=== PATIENT | female | born 1985 | race Caucasian/White ===

== ENCOUNTER 2017-09-11 09:00 | Emergency (ER) | payer SELFPAY ==
[~2017-09-11] VITALS: Ht 172.7 cm; Wt 74.9 kg
[~2017-09-11 09:00] MED LIST: DIPH25CA65 PO; IBUP-103 PO
[2017-09-11 09:04] VITALS: TEMP 36.7; Ht 172.7 cm; Wt 74.9 kg
[2017-09-11] MEDS ORDERED: PROPARACAINE HCL 0.5% OP SOLN 15 ML BTL ONE (09:38)
[2017-09-11] MEDS ORDERED: TRIMETHOPRIM/POLYMYXIN B OP ONE (10:00)
[2017-09-11 10:06] VITALS: BP 123/84; PULSE 81; O2SAT 100
--- NOTE | 2017-09-11 15:32 | EMERGENCY ROOM VISIT NOTE ---
History Report prepared by Frances: Anshul Gutierrez Under the Supervision of: Dr. Dangelo Ha D.O. First contact with patient: 09:21 Chief Complaint: EYE ASSESSMENT Stated Complaint: SWOLLEN,WATERY EYE, SENSITIVE TO LIGHT History of Present Illness The patient is a 32 year old female who presents to the Emergency Room with complaints of worsening left eye irritation starting yesterday morning. The patient states that in the morning she woke up with her eye being irritated and eventually after some rubbing she got a strand of dog hair out of her eye from below her upper eye lid. She states that her eye was just pink and watery yesterday, and now it feels like there is some sort of cut. The patient states that currently her vision is a little blurry in the left eye, and it is sensitive to light. The patient states that she has never needed contacts or glasses in the past. No loss of vision. No pain behind the eye. Pt denies green discharge from the eye, headache, fevers, chest pain, shortness of breath , nausea, vomiting, and diarrhea. Source of History: patient Onset: yesterday morning Position: eye (left) Quality: other (irritation) Timing: worsening Note: Associated symptoms: Blurry vision and sensitive to light Review of Systems See HPI for pertinent positives & negatives. A total of 10 systems reviewed and were otherwise negative. Past Medical & Surgical Medical Problems: (1) Asthma Family History Diabetes mellitus FH: cancer Hypertension Social History Smoking Status: Current Every Day Smoker Marital Status: single Occupation Status: employed Current/Historical Medications Scheduled PRN Diphenhydramine Hcl (Benadryl Allergy), 1 CAP PO BID PRN for SEASONAL ALLERGIES Ibuprofen Tab (Advil), 200-800 MG PO Q6H PRN for Pain Allergies Coded Allergies: Pecan (Unverified Allergy, Severe, ANAPHYLAXIS, 09/11/17) [place] (Verified Allergy, Severe, ANAPHYLAXIS, 09/11/17) Loratadine (Verified Allergy, Mild, 09/11/17) Citalopram (Verified Allergy, Unknown, 09/11/17) Physical Exam Vital Signs Date Time Temp Pulse Resp B/P (MAP) Pulse Ox O2 Delivery O2 Flow Rate FiO2 09/11/17 10:06 81 20 123/84 100 09/11/17 09:04 36.7 88 18 123/79 98 Room Air Right Eye Acuity: 20/20 Left Eye Acuity: 20/20 Physical Exam GENERAL: Sitting up in bed, alert, well appearing, well nourished, no distress, non-toxic EYE EXAM: Scleral injection with subconjunctival hemorrhage from 9:00 to 12:00. SLIT LAMP: ac deep quiet. Several scleral and one corneal abrasion. No cell or flare. IOP 20L/19R OROPHARYNX: no exudate, no erythema, lips, buccal mucosa, and tongue normal and mucous membranes are moist NECK: supple, no nuchal rigidity, no adenopathy, non-tender LUNGS: Clear to auscultation. Normal chest wall mechanics HEART: no murmurs, S1 normal and S2 normal ABDOMEN: abdomen soft, non-tender, normo-active bowel sounds, no masses, no rebound or guarding. SKIN: no rashes and no bruising UPPER EXTREMITIES: upper extremities are grossly normal. LOWER EXTREMITIES: No pitting edema. NEURO EXAM: Normal sensorium, cranial nerves II-XII grossly intact, normal speech, no gross weakness of arms, no gross weakness of legs. Gross sensation intact. Medical Decision & Procedures Medications Administered Medications (Trade) Dose Ordered Sig/Jemal Route Start Time Stop Time Status Last Admin Dose Admin Polymyxin/ Trimethoprim Sulfate (Polytrim Oph Soln) 2 drops NOW ONCE OP 09/11/17 10:00 09/11/17 10:01 DC 09/11/17 10:02 2 DROPS Procedure Slit Lamp Examination Indication:pain in left eye The left eye was prepped with topical proparacaine. Slit lamp examination was performed in the standard fashion. Subconjunctival hemorrhage on the right sclera with scleral and corneal abrasion in the vertical fashion. Anterior chamber deep/ quiet. Scleral injection present. Clear discharge present. IOP 19 and 20 right/left No foreign bodies noted. Negative Kacie sign. The patient tolerated the procedure well without complication. ED Course ED COURSE: Vital signs were reviewed and showed normal vitals The patients medical record was reviewed The above diagnostic studies were performed and reviewed. ED treatments and interventions as stated above. 0936: The patient was evaluated in room B3. A complete history and physical examination was performed. I discussed my findings with the patient and she understands and agrees with the treatment plan. Based on the patients age, coexisting illnesses, exam and lab findings the decision to treat as an outpatient was made. The patient remained stable while under my care. The patient appeared well at the time of discharge. 0938: Alcaine 0.5% Oph Soln OP 1000: Polytrim Oph Soln 2 drops OP Medical Decision Differential diagnosis: Etiologies such as~a trauma, corneal abrasion, corneal ulcer, foreign body, globe penetration, hyphema, hypopyon, and orbital cellulitis, periorbital cellulitis, as well as others were entertained. Patient is a 32-year-old female who presents to ER for pain in her left eye. She notes that this occurred when she woke the morning yesterday. She was able to remove a dull care. She had some relief following this. Visual acuity is intact. IOP is appropriate. Patient is neurologically intact. Slit lamp shows corneal abrasion and abrasions of the sclera as well. She had complete relief following fluorescein. I do believe this is all superficial. No cell or flare. She is given antibiotic drops and discharged follow-up with ophthalmology if pain continues over the next 2 days. Discussed with Pt concerning signs and symptoms to watch out for. Pt was instructed to follow up with their PCP and discussed with the patient their option to return to the ED at anytime for persistent or worsening symptoms. The appropriate anticipatory guidance and out-patient management, including indications for return to the emergency department, were explained at length to the patient and understood. Medication Reconcilliation Current Medication List: was personally reviewed by me Blood Pressure Screening Patient's blood pressure: Normal blood pressure Impression Primary Impression: Corneal abrasion Additional Impression: Subconjunctival hemorrhage Scribe Attestation The scribe's documentation has been prepared under my direction and personally reviewed by me in its entirety. I confirm that the note above accurately reflects all work, treatment, procedures, and medical decision making performed by me. Departure Information Dispostion Home / Self-Care Referrals No Doctor, Assigned (PCP) Forms HOME CARE DOCUMENTATION FORM, IMPORTANT VISIT INFORMATION, WORK / SCHOOL INSTRUCTIONS Patient Instructions Corneal Injury, ED Eye Injury Corneal Abrasion, My [facility] Additional Instructions Please follow up with your primary care doctor with in the next 24 hours. Any worsening of your symptoms, please return to the ED immediately. This includes any fevers greater than 100.4, purulent discharge from her eye, loss of vision, headache, change in vision or any other concerning signs or symptoms from your standpoint. Please use antibiotic drops 3 times a day for the next 3 days or until your symptoms resolved. You should also use saline eyedrops every hour as needed. Please try to refrain from itching her eye. Problem Qualifiers Primary Impression: Corneal abrasion Encounter type: sequela Laterality: unspecified laterality Qualified Codes : S05.00XS - Injury of conjunctiva and corneal abrasion without foreign body, unspecified eye, sequela Additional Impression: Subconjunctival hemorrhage Laterality: unspecified laterality Qualified Codes: H11.30 - Conjunctival hemorrhage, unspecified eye
== END 2017-09-11 10:07 | disposition home or self-care (01) ==
LOC: C.EDB 09:01 → C.EDA 10:07
DX: S05.02XA Injury of conjunctiva and corneal abrasion without foreign body, left eye, initial encounter (principal); H11.32 Conjunctival hemorrhage, left eye; X58.XXXA Exposure to other specified factors, initial encounter; J45.909 Unspecified asthma, uncomplicated; Z83.3 Family history of diabetes mellitus; Z82.49 Family history of ischemic heart disease and other diseases of the circulatory system; F17.200 Nicotine dependence, unspecified, uncomplicated

== ENCOUNTER 2017-09-16 09:45 | Emergency (ER) | payer SELFPAY ==
[~2017-09-16] VITALS: Ht 172.7 cm; Wt 74.8 kg
[2017-09-16 09:53] VITALS: TEMP 36.9; Ht 172.7 cm; Wt 74.8 kg
[2017-09-16] MEDS ORDERED: ACETAMINOPHEN 500 MG TAB PO ONE (10:39)
[2017-09-16 10:40] LABS: URINE APPEARANCE CLOUDY (CLEAR); URINE COLOR DK YELLOW; URINE EPITHELIAL CELL AUTO >30 /lpf (0-5); URINE NITRITE NEG (NEG); URINE PH 5.5 (4.5-7.5); URINE SPECIFIC GRAVITY 1.024 (1.000-1.030); UROBILINOGEN NEG (NEG); ZZUR CULT IF INDIC CLEAN CATCH YES
[2017-09-16 10:42] LABS: MANUAL MICROSCOPIC REQUIRED? NO; REVIEW REQ? YES
[2017-09-16 10:44] LABS: URINE BILIRUBIN NEG (NEG)
[2017-09-16 11:02] LABS: HEMATOCRIT 34.9 % (37-47); MEAN CELL VOLUME 83.3 fL (80-100); MEAN CORPUSCULAR HEMOGLOBIN 30.1 pg (25-34); MEAN CORPUSCULAR HGB CONC 36.1 g/dl (32-36); MEAN PLATELET VOLUME 10.4 fL (7.4-10.4); PLATELET COUNT 190 K/uL (130-400); RED BLOOD COUNT 4.19 M/uL (4.2-5.4); WHITE BLOOD COUNT 8.22 K/uL (4.8-10.8)
[2017-09-16 11:08] LABS: URINE PATH CASTS 0-3 GRANULAR CASTS /lpf (0)
[2017-09-16 11:15] LABS: CALCIUM 8.7 mg/dl (8.5-10.1); CREATININE 0.68 mg/dl (0.60-1.20); POTASSIUM 3.5 mmol/L (3.5-5.1)
[2017-09-16 11:18] LABS: ALB/GLOB RATIO 0.9 (0.9-2)
[2017-09-16 11:26] LABS: BASO % 0.2 %; BASO ABS # 0.02 K/uL (0-0.2); COMPLETE YES; EOS % 0.2 %; HYPERSEGMENTED POLYS 1+; IG% 0.1 %; LYMPH % 11.4 %; LYMPH ABS # 0.94 K/uL (1.2-3.4); MONO % 8.2 %; NEUT % 79.9 %; TOXIC GRANULATION 1+
[2017-09-16] MEDS ORDERED: AMOXICILLIN 250 MG CAP PO STA (12:08)
[2017-09-16] MEDS ORDERED: PRED50TA PO (12:12)
[2017-09-16] MEDS ORDERED: AMOX500T3 PO (12:12)
--- NOTE | 2017-09-16 12:13 | EMERGENCY ROOM VISIT NOTE ---
ED Visit Note First contact with patient: 10:58 CHIEF COMPLAINT: Sore throat and fever 3 days HISTORY OF PRESENT ILLNESS: Patient is an otherwise healthy 32-year-old white female who presents to the emergency department for evaluation of fever, body and muscle aches, sinus and nasal congestion, sore throat and swollen neck glands. Her symptoms started about 3-4 days ago. Temperature max was 102F orally 2 days ago. She's been taking ibuprofen, and an [id number] sinus medication for her symptoms. She denies any cough or sputum production. She reports her kids have been sick recently, and a coworker was diagnosed with strep last week. No rash. Denies any posterior neck pain or stiffness. No difficulty breathing. Symptoms came on gradually. There has been no chest pain , no abdominal pain, no nausea or vomiting. REVIEW OF SYSTEMS: Review of systems as per HPI. All other systems reviewed were negative. At least 6 systems reviewed. PMH: Electronic medical records are reviewed and summarized as above/below. See Problem List. SOCIAL HISTORY: Patient lives at home with her family. Former smoker.. PHYSICAL EXAM: Vital Signs: Reviewed Nurse's notes. MENTAL STATUS: Patient is nontoxic appearing 32-year-old female who is awake and alert and in no acute distress. Vital signs are stable. She is afebrile. HEAD: Atraumatic, without temporal or scalp tenderness. EYES: PERRL, EOMI, no discharge or injection. Old left subconjunctival hemorrhage noted. EARS: Tympanic membranes intact, not inflamed, have normal contour. External canals clear. NOSE: Nares patent, turbinates edematous and boggy with clear rhinorrhea. MOUTH: Mucous membranes moist, no lesions, tongue and gums appear normal. THROAT: Tonsils are slightly erythematous, with exudate noted bilaterally. No trismus. Uvula is midline. Airway is patent. NECK: Supple, nontender, bilateral cervical chain lymphadenopathy noted. HEART: Regular rate and rhythm without murmurs, ectopy, gallops, or rubs. LUNGS: Clear to auscultation and breath sounds equal, no wheezes, rales, or rhonchi. SKIN: Normal. NEUROLOGICAL: Sensory and motor functions grossly intact. Normal gait. ED course: The patient was seen and assessed as above. Critical pathways had been implemented prior to my evaluation of the patient. IV lock was initiated. She had been hydrated with a liter of normal saline solution. She was given Tylenol 1 g orally. Rapid strep was obtained and was negative. Backup cultures were pending. Influenza swab was performed and was negative. ABC with differential, CMP and urinalysis were also ordered. Patient's laboratory studies noted a normal white count of 8200. Electrolytes are unremarkable. Renal function is normal. Transaminases are within normal limits. Influenza swab was negative. Patient's laboratory studies were reviewed with her. She has had a fever over the last several days, is afebrile here. She has no physical exam findings to indicate meningitis or encephalitis. She has evidence for tonsillitis on exam with cervical chain lymphadenopathy. She does not have any evidence for retropharyngeal or peritonsillar abscess. She was given amoxicillin 500 mg orally and prednisone 60 mg orally. She'll be placed on a course of amoxicillin and given prednisone. Continued supportive care measures were discussed using neit-doa-gjhixkg medications. She was educated on the worrisome signs or symptoms for which return to the emergency department, and was encouraged to recheck with her primary care provider this week. Differential diagnoses also entertained included strep versus viral pharyngitis , mononucleosis, viral illness including influenza, among others. Medication reconciliation: I attest that I have personally reviewed the patient' s current medication list. Blood pressure screening : Patient was found to have normal blood pressure on screening and does not require follow-up. Problem List Medical Problems: (1) Asthma Status: Chronic (2) Corneal abrasion Status: Resolved (3) Corneal abrasion Status: Resolved (4) Dental caries Status: Resolved (5) Finger contusion Status: Resolved (6) Irregular menstrual bleeding Status: Resolved (7) Pain, dental Status: Resolved (8) Pelvic cramping Status: Resolved (9) Subconjunctival hemorrhage Status: Resolved Current/Historical Medications Scheduled Amoxicillin (Amoxil), 1 TAB PO TID Prednisone (Prednisone), 50 MG PO DAILY Scheduled PRN Ibuprofen Tab (Advil), 200-800 MG PO Q6H PRN for Pain Allergies Coded Allergies: Pecan (Unverified Allergy, Severe, ANAPHYLAXIS, 09/11/17) [place] (Verified Allergy, Severe, ANAPHYLAXIS, 09/11/17) Citalopram (Verified Allergy, Unknown, 09/11/17) Vital Signs Date Time Temp Pulse Resp B/P (MAP) Pulse Ox O2 Delivery O2 Flow Rate FiO2 09/16/17 13:04 92 18 107/73 98 09/16/17 11:58 96 18 98 Room Air 09/16/17 09:53 36.9 98 16 99/68 98 Room Air Laboratory Results 09/16/17 10:35 Red Blood Count 4.19, Mean Corpuscular Volume 83.3, Mean Corpuscular Hemoglobin 30.1, Mean Corpuscular Hemoglobin Concent 36.1, Mean Platelet Volume 10.4, Neutrophils (%) (Auto) 79.9, Lymphocytes (%) (Auto) 11.4, Monocytes (%) (Auto) 8.2, Eosinophils (%) (Auto) 0.2, Basophils (%) (Auto) 0.2, Neutrophils # (Auto) 6.56, Lymphocytes # (Auto) 0.94, Monocytes # (Auto) 0.67, Eosinophils # (Auto) 0.02, Basophils # (Auto) 0.02 09/16/17 10:35 Test 09/16/17 10:20 09/16/17 10:35 Urine Color DK YELLOW Urine Appearance CLOUDY (CLEAR) Urine pH 5.5 (4.5-7.5) Urine Specific [place] 1.024 (1.000-1.030) Urine Protein TRACE (NEG) Urine Glucose (UA) NEG (NEG) Urine Ketones 3+ (NEG) Urine Occult Blood 2+ (NEG) Urine Nitrite NEG (NEG) Urine Bilirubin NEG (NEG) Urine Urobilinogen NEG (NEG) Urine Leukocyte Esterase SMALL (NEG) Urine WBC (Auto) 5-10 /hpf (0-5) Urine RBC (Auto) 5-10 /hpf (0-4) Urine Hyaline Casts (Auto) 1-5 /lpf (0-5) Urine Epithelial Cells (Auto) >30 /lpf (0-5) Urine Bacteria (Auto) 2+ (NEG) Urine Pathogenic Casts 0-3 GRANULAR CASTS /lpf (0) Urine Test NEG (NEG) White Blood Count 8.22 K/uL (4.8-10.8) Red Blood Count 4.19 M/uL (4.2-5.4) Hemoglobin 12.6 g/dL (12.0-16.0) Hematocrit 34.9 % (37-47) Mean Corpuscular Volume 83.3 fL (80-100) Mean Corpuscular Hemoglobin 30.1 pg (25-34) Mean Corpuscular Hemoglobin Concent 36.1 g/dl (32-36) Platelet Count 190 K/uL (130-400) Mean Platelet Volume 10.4 fL (7.4-10.4) Neutrophils (%) (Auto) 79.9 % Lymphocytes (%) (Auto) 11.4 % Monocytes (%) (Auto) 8.2 % Eosinophils (%) (Auto) 0.2 % Basophils (%) (Auto) 0.2 % Neutrophils # (Auto) 6.56 K/uL (1.4-6.5) Lymphocytes # (Auto) 0.94 K/uL (1.2-3.4) Monocytes # (Auto) 0.67 K/uL (0.11-0.59) Eosinophils # (Auto) 0.02 K/uL (0-0.5) Basophils # (Auto) 0.02 K/uL (0-0.2) RDW Standard Deviation 38.0 fL (36.4-46.3) RDW Coefficient of Variation 12.4 % (11.5-14.5) Immature Granulocyte % (Auto) 0.1 % Immature Granulocyte # (Auto) 0.01 K/uL (0.00-0.02) Hypersegmented Polys 1+ Toxic Granulation 1+ Anion Gap 12.0 mmol/L (3-11) Est Creatinine Clear Calc Drug Dose 120.9 ml/min Estimated GFR () 135.1 Estimated GFR (Non- 116.6 BUN/Creatinine Ratio 11.0 (10-20) Calcium Level 8.7 mg/dl (8.5-10.1) Total Bilirubin 0.6 mg/dl (0.2-1) Aspartate Amino Transf (AST/SGOT) 12 U/L (15-37) Alanine Aminotransferase (ALT/SGPT) 23 U/L (12-78) Alkaline Phosphatase 76 U/L (45-117) Total Protein 7.4 gm/dl (6.4-8.2) Albumin 3.4 gm/dl (3.4-5.0) Globulin 4.0 gm/dl (2.5-4.0) Albumin/Globulin Ratio 0.9 (0.9-2) Influenza Type A Antigen Neg for Influ A (NEG) Influenza Type B Antigen Neg for Influ B (NEG) Medications Administered Medications (Trade) Dose Ordered Sig/Jemal Route Start Time Stop Time Status Last Admin Dose Admin Acetaminophen (Tylenol Tab) 1,000 mg STK-MED ONCE PO 09/16/17 10:39 09/16/17 10:40 DC 09/16/17 10:45 1,000 MG Amoxicillin (Amoxil Cap) 500 mg NOW STAT PO 09/16/17 12:08 09/16/17 12:09 DC 09/16/17 12:48 500 MG Prednisone (PredniSONE TAB) 60 mg NOW STAT PO 09/16/17 12:08 09/16/17 12:09 DC 09/16/17 12:48 60 MG Departure Information Impression Primary Impression: Exudative tonsillitis Prescriptions Prednisone (Prednisone) 50 Mg Tab 50 MG PO DAILY for 4 Days, #4 TAB Prov: Kym Baird PA 09/16/17 Amoxicillin (AMOXIL) 500 Mg Tab 1 TAB PO TID for 10 Days, #30 TAB Prov: Kym Baird PA 09/16/17 Referrals No Doctor, Assigned (PCP) Patient Instructions My [facility] Additional Instructions Amoxicillin 500mg: Take one pill 3 times daily for 10 days for your throat infection. All antibiotics can cause diarrhea. If this occurs and you feel worse or it does not resolve in 1-2 days follow up with your doctor or return to the Emergency Department as this could be signs of serious underlying problems. Any medication can cause an allergic reaction, stop the pills immediately and return to the ER for rash, hives, breathing difficulties, or swelling. Prednisone 50mg: Once daily until the prescription is finished. It is best to take this earlier in the day as some patients note occasional difficulty falling asleep when taken in the late evening. Acetaminophen(Tylenol) may be used for fever or pain. Use 1000mg every six hours as needed. Avoid using more than 3000mg in a 24 hour period. (AND/OR) Ibuprofen(Motrin, Advil) may be used for fever or pain. Use 600mg every six hours as needed. Take with food. Avoid using more than 2400mg in a 24 hour period. Do not use 2400mg per day for more than three consecutive days without physician direction. Prolonged inappropriate use can lead to stomach upset or ulcers. Pseudoephedrine(Sudaphed): 30-60mg every 6 hours as needed for nasal congestion. Do not take this with other stimulant products or supplements. Guaifenesin (Mucinex) : Take 1200 mg every 12 hours as needed for nasal/chest congestion, to help thin secretions. Albuterol Inhaler: Take 2 puffs four times daily for seven days, then as needed. Rest and drink plenty of fluids. Controlling your fever with Tylenol and Ibuprofen as above will make you feel better. Wash your hands after nose blowing, sneezing, or coughing. Most germs are spread through contact, therefore improper hygiene may result in your close contacts and loved ones becoming ill just like you. Continue current medications. Return to the ER for severe headache, neck stiffness, chest pain, difficulty breathing, fevers, vomiting, worsening of your condition, or as needed. Follow up with your primary physician this week for a recheck of your current condition.
[2017-09-16 13:04] VITALS: BP 107/73; PULSE 92; O2SAT 98
== END 2017-09-16 13:13 | disposition home or self-care (01) ==
LOC: C.EDB 09:46 → C.EDC 13:13
DX: J03.90 Acute tonsillitis, unspecified (principal); Z87.891 Personal history of nicotine dependence

== ENCOUNTER 2022-09-17 11:31 | Inpatient (IN) ==
[2022-09-17 12:22] LABS: Basophils # (auto) 0.05 K/uL (0-0.2); Basophils % (auto) 0.5 %; Eosinophils # (auto) 0.11 K/uL (0-0.50); Eosinophils % (auto) 1.1 %; Hematocrit (blood only) 36.3 % (34.1-44.9); Immature Granulocytes # (auto) 0.03 K/uL (0.00-0.02); Immature Granulocytes % (auto) 0.3 %; Lymphocytes % (auto) 21.6 %; Mean Corpuscular Hemoglobin 29.8 pg (25.0-34.0); Mean Corpuscular Hgb Conc 35.8 g/dL (32.0-36.0); Mean Corpuscular Volume 83.3 fL (80.0-100.0); Monocytes # (auto) 0.64 K/uL (0.24-0.82); Monocytes % (auto) 6.3 %; Neutrophils # (auto) 7.16 K/uL (1.4-6.5); Neutrophils % (auto) 70.2 %; Platelet Count 299 K/uL (130-400); RDW Standard Deviation 36.7 fL (36.4-46.3); Red Blood Count 4.36 M/uL (3.93-5.22); White Blood Count 10.19 K/ul (4.8-10.8)
[2022-09-17 12:32] LABS: Carbon Dioxide 28 mmol/L (21-32); Chloride 107 mmol/L (98-107); Potassium 3.6 mmol/L (3.5-5.1); Sodium 140 mmol/L (136-145)
[2022-09-17 12:33] LABS: Alanine Aminotransferase 6 U/L (7-52); Albumin Globulin Ratio 1.4 (0.9-2); Alkaline Phosphatase 48 U/L (34-104); Anion Gap 5 (3-11); Aspartate Aminotransferase 9 U/L (13-39); BUN Creatinine Ratio 7.4 (10-20); Bilirubin,Total 0.5 mg/dl (0.2-1.0); Blood Urea Nitrogen 5 mg/dl (6-23); Calcium 8.6 mg/dl (8.5-10.1); Est GFR (African American) 130.4 ml/min; Est GFR (Non-African American) 112.5 ml/min; Globulin 2.8 gm/dl (2.5-4.0); Glucose 82 mg/dl (70-99(Fasting)); Total Protein 6.8 gm/dl (6.0-8.3)
[2022-09-17] MEDS ORDERED: PIPERACILLIN/TAZOBACTAM 4.5 GM in DEXTROSE 5% 100 ML IV ONE (15:13)
[2022-09-17] MEDS ORDERED: SODIUM CHLORIDE 0.9% 1000ML 1,000 ML IV ONE (15:13)
[2022-09-17] MEDS ORDERED: ACETAMINOPHEN 1,000 MG/100 ML VIAL IV STA (15:13)
[2022-09-17] MEDS ORDERED: dexAMETHasone**PF** 10 MG/ML VIAL IV ONE (15:13)
[2022-09-17] MEDS ORDERED: MoRPHine SULFATE 4 MG/ML 1 ML CARP\\VIAL IV STA (15:13)
[2022-09-17] MEDS ORDERED: OPTIRAY 350 100ml IV ONE (15:50)
--- NOTE | 2022-09-17 16:04 | CT Scan Report ---
CT soft tissue neck w con HISTORY: 37 years-old Female Right mandibular swelling/dental inf/?abscess acute right-sided facial pain and swelling. Possible dental abscess. COMPARISON: None TECHNIQUE: Multiple axial CT images of the soft tissues of the neck were obtained following the intra venous administration of 83 cc Optiray 350. A dose lowering technique was used consistent with the pr incipals of FLOR. FINDINGS: The imaged intracranial structures demonstrate no acute abnormality. The opacified vascular structure s of the neck are within normal limits. The globes and orbits are unremarkable. Patent airway. Bilate ral subcentimeter palatine tonsillar calcifications. The glottis and subglottic airway are unremarkab le. The thyroid is within normal limits. Residual thymic tissue anterior mediastinum. Parotid and sub mandibular glands are unremarkable. No pneumothorax. Mild subpleural bleb formation of the right lung apex. Right 72 lymph nodes measuring up to 8 mm are noted along with bilateral cervical chain lymph nodes m easuring up to 1.1 cm on the right, likely reactive. There is moderate subcutaneous and deep tissue e ifeoma within the right mandibular tissues tracking into the subareolar distribution and layering along the right platysma and sternocleidomastoid. No discrete abscess identified. There is no acute calvarial fracture. The mastoid air cells and middle ear cavities are clear. The pa ranasal sinuses are also generally clear. 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 A large periapical cyst is noted involving the right first ana bular molar with associated mild lateral cortical dehiscence. IMPRESSION: 1. Numerous dental caries with periapical cysts. 2. There is moderate subcutaneous and deep tissue edema involving the right mandibular and submandibu lar tissues suggestive of cellulitis without fluid collection to suggest abscess. 3. Mild cervical chain and submandibular lymphadenopathy, likely reactive. ACT 112: Negative or not required by law. The above report was generated using voice recognition software. It may contain grammatical, syntax o r spelling errors. Electronically signed by: Aleksandr Saavedra M.D. 09/17/2022 4:03 PM
--- NOTE | 2022-09-17 16:21 | Emergency Department Note ---
Impression & Plan Cellulitis of jaw, right, Tobacco abuse, Dental caries ED Provider Note NAME: CHRISTOPHER GAINES AGE: 37 SEX: F ARRIVES VIA: Walk-In INFORMANT: Patient ED PROVIDER(S): Fabian Tinajero MD CHIEF COMPLAINT: Dental infection, jaw pain and swelling PLAN: Disposition: Admit MEDICAL DECISION MAKING: The patient is a pleasant 37-year-old woman with a past medical history of dental caries and tobacco abuse who presents to the emergency department accompa nied by her mother for evaluation of worsening right lower dental pain with right jaw pain and swelling that has developed since Saturday. He reports increasing pain and redness. She reports she does not have a dentist. She denies fevers, cough, congestion, GI or symptoms. She denies shortness of breath or trouble swallowing but it is painful to open her mouth. On arrival the patient is uncomfortable but no acute distress, afebrile stable vital signs. She has edema and erythema of the right mandibular and submandibular region with tenderness and warmth. There is mild erythema extendi ng down the right anterior lateral aspect of the neck. She has tender cervical and submandibular lymphadenopathy. There is no pain with tracheal manipulation. The patient has mild trismus but is able to open her mouth albeit causing pain. She is handling her secretions without difficulty. WBC, H/H and platelets within normal limits. Chemistry without metabolic acidosis per electrolytes LFTs unremarkable. COVID-19 RNA, WINDY test was negative. CT soft tissue neck was performed and demonstrates evidence of mandibular/submandibular cellulitis with moderate subcutaneous and deep tissue edema involving the right mandible and submandibular tissues. There is no fluid collection to suggest abscess. Note is made of mild cervical chain and submandibular lymphadenopathy that is likely reactive. Case was discussed with oral surgery, Dr. Cornejo who agrees with the patient being admitted for IV antibiotics to the hospitalist service. He will be available for inpatient team consultation and can see the patient tomorrow. The patient has been treated with IV Zosyn on arrival due to severity of symptoms. She was additionally given dexamethasone, APAP, morphine and IV fluid hydration and upon reevaluation patient did report improvement in her pain and her mild trismus had improved/resolved as she was able to open her mouth more freely without difficulty. Case was discussed with Maura Flores PAC, with Mark Valerio hospitalist who will evaluate the patient for admission. Triage Nursing notes reviewed and agree them. Prior medical records reviewed Vital Signs: reviewed Differential diagnosis: Viral syndrome, tonsillitis, streptococcal pharyngitis, mononucleosis, peritonsillar abscess, retropharyngeal abscess, otitis, pneumonia, influenza, as well as other pathologies. ER treatment provided: See below. Diagnostics interpreted by me: Cardiac Monitoring: An order for continuous cardiac monitoring was placed and demonstrated normal sinus rhythm, 83 bpm, no ectopy. Laboratory studies: See below Imaging studies: See below Consultation(s): Dr. Cornejo, Oral surgery [facility], [facility] HPI: The patient is a pleasant 37-year-old woman with a past medical history of dental caries and tobacco abuse who presents to the emergency department accompanied by her mother for evaluation of worsening right lower dental pain with right jaw pain and swelling that has developed since Saturday. He reports increasing pain and redness. She reports she does not have a dentist. She denies fevers, cough, congestion, GI or symptoms. She denies shortness of breath or trouble swallowing but it is painful to open her mouth. ROS: See above HPI for pertinent positives & negatives. A total of 10 systems reviewed and were otherwise negative. VITALS:See Below PHYSICAL EXAMINATION: GENERAL: Awake, alert, uncomfortable-appearing, in no distress HENT: Normocephalic, atraumatic. Edema and erythema of the right mandibular and submandibular region with tenderness and warmth. No crepitus. The patient has mild trismus but is able to open her mouth albeit causing pain. She is handling her secretions without difficulty. EYES: Normal conjunctiva. Sclera non-icteric. NECK: Supple. No nuchal rigidity. FROM. No JVD. Mild erythema extending down the right anterior lateral aspect of the neck. Tender cervical and submandibular lymphadenopathy. There is no pain with tracheal manipulation. RESPIRATORY: Clear to auscultation. CARDIAC: Regular rate, normal rhythm. Extremities warm and well perfused. Pulses equal. ABDOMEN: Soft, non-distended. No tenderness to palpation. No rebound or guardi ng. No masses. RECTAL: Deferred. MUSCULOSKELETAL: Chest examination reveals no tenderness. The back is symmetrical on inspection without obvious abnormality. There is no CVA tenderness to palpation. No joint edema. LOWER EXTREMITIES: Calves are equal size bilaterally and non-tender. No edema. No discoloration. NEURO: Normal sensorium. No sensory or motor deficits noted. SKIN: No rash or jaundice noted. ED COURSE: Critical Care: I have personally spent greater than 35 minutes of critical care time in the direct management of this patient. This includes bedside care, interpretation of diagnostic studies, and testing, discussion with consultants, patient, and family members, and other required patient management activities. This 35 minutes is in excess of all separately billable procedures. Fabian Tinajero MD Past Med/Surg History Medical History Allergic rhinitis Hx of Alice-Cruz syndrome Surgical History History of tooth extraction Family History Mother Hypertension Father Hypertension Grandmother (Paternal) Heart disease Diabetes Social History Smoking Status: Current every day smoker Hx Alcohol Use: Yes (rarely) Preferred Language: Chinese Current Living Situation: Family current occupational status: employed current occupation: [employer] Feels Safe at Home: Yes Dental Care, Regularly: No Allergies Allergies Allergy/AdvReac Type Severity Reaction Status Date / Time pecan nut Allergy Severe ANAPHYLAXIS Unverified 09/17/22 16:40 walnut Allergy Severe ANAPHYLAXIS Verified 09/17/22 16:40 citalopram Allergy Unknown Unknown Verified 09/17/22 16:40 Home Meds Home Medications Medication Instructions Recorded Confirmed diphenhydramine HCl 25 mg tablet 25 mg PO QAM 09/17/22 09/17/22 (Benadryl Allergy) ibuprofen 200 mg tablet 800 mg PO Q6H PRN Pain 09/17/22 09/17/22 Results & Data (ED) Vital Signs Vital Signs - 24 hr 09/17/22 11:33 09/17/22 14:09 09/17/22 14:30 Temperature 36.4 C L Temperature Source Temporal Artery Scan Pulse Rate 84 76 Pulse Rate [Finger] 74 Respiratory Rate 18 19 19 Respiratory Effort / Characteristics Non-Labored Spontaneous Non-Labored Spontaneous Respiratory Depth Normal Normal Respiratory Pattern Regular Blood Pressure 120/81 136/82 Blood Pressure [Left Arm] 123/89 Blood Pressure Mean 94 100 Blood Pressure Mean [Left Arm] 100 Blood Pressure Position [Left Arm] Sitting Pulse Oximetry 98 100 100 Oxygen Delivery Method Room Air Room Air Room Air Sepsis Recent Fever Within 48 Hours No Sepsis New/Unexplained Change in Mental Status No Sepsis Action Taken by Nursing No Action Required 09/17/22 15:00 09/17/22 15:30 09/17/22 16:00 Temperature Temperature Source Pulse Rate 71 78 85 Pulse Rate [Finger] Respiratory Rate 18 17 17 Respiratory Effort / Characteristics Respiratory Depth Respiratory Pattern Blood Pressure 117/91 122/85 119/85 Blood Pressure [Left Arm] Blood Pressure Mean 99 97 96 Blood Pressure Mean [Left Arm] Blood Pressure Position [Left Arm] Pulse Oximetry 99 100 100 Oxygen Delivery Method Room Air Room Air Room Air Sepsis Recent Fever Within 48 Hours Sepsis New/Unexplained Change in Mental Status Sepsis Action Taken by Nursing 09/17/22 16:30 09/17/22 17:02 Temperature Temperature Source Pulse Rate 88 83 Pulse Rate [Finger] Respiratory Rate 16 16 Respiratory Effort / Characteristics Respiratory Depth Respiratory Pattern Blood Pressure 127/92 115/74 Blood Pressure [Left Arm] Blood Pressure Mean 103 87 Blood Pressure Mean [Left Arm] Blood Pressure Position [Left Arm] Pulse Oximetry 100 100 Oxygen Delivery Method Room Air Room Air Sepsis Recent Fever Within 48 Hours Sepsis New/Unexplained Change in Mental Status Sepsis Action Taken by Nursing Laboratory Data Attestation: I reviewed the patient's lab results. Result diagrams: 09/17/22 11:50 09/17/22 11:50 Lab Results 09/17/22 09/17/22 09/17/22 Range/Units 11:50 11:50 11:50 WBC 10.19 (4.8-10.8) K/ul RBC 4.36 (3.93-5.22) M/uL Hgb 13.0 (12.0-16.0) g/dl Hct 36.3 (34.1-44.9) % MCV 83.3 (80.0-100.0) fL MCH 29.8 (25.0-34.0) pg MCHC 35.8 (32.0-36.0) g/dL RDW Std Deviation 36.7 (36.4-46.3) fL RDW Coeff of Christofer 12.0 (11.5-14.5) % Plt Count 299 (130-400) K/uL MPV 10.0 (9.4-12.3) fL Immature Gran % (Auto) 0.3 % Neut % (Auto) 70.2 % Lymph % (Auto) 21.6 % [place] % (Auto) 6.3 % Eos % (Auto) 1.1 % Baso % (Auto) 0.5 % Neut # (Auto) 7.16 H (1.4-6.5) K/uL Lymph # (Auto) 2.20 (1.2-3.4) K/uL [place] # (Auto) 0.64 (0.24-0.82) K/uL Eos # (Auto) 0.11 (0-0.50) K/uL Baso # (Auto) 0.05 (0-0.2) K/uL Immature Gran # (Auto) 0.03 H (0.00-0.02) K/uL Sodium 140 (136-145) mmol/L Potassium 3.6 (3.5-5.1) mmol/L Chloride 107 (98-107) mmol/L Carbon Dioxide 28 (21-32) mmol/L Anion Gap 5 (3-11) BUN 5 L (6-23) mg/dl Creatinine 0.68 (0.6-1.2) mg/dl Est Cr Clr Drug Dosing Not Reportable Est GFR ( Amer) 130.4 ml/min Est GFR (Non-Af Amer) 112.5 ml/min BUN/Creatinine Ratio 7.4 L (10-20) Glucose 82 (70-99(Fasting)) mg/dl Lactate (0.4-2.0) mmol/L Calcium 8.6 (8.5-10.1) mg/dl Total Bilirubin 0.5 (0.2-1.0) mg/dl AST 9 L (13-39) U/L ALT 6 L (7-52) U/L Alkaline Phosphatase 48 (34-104) U/L Total Protein 6.8 (6.0-8.3) gm/dl Albumin 4.0 (3.4-5.0) gm/dl Globulin 2.8 (2.5-4.0) gm/dl Albumin/Globulin Ratio 1.4 (0.9-2) Procalcitonin 0.17 (0-0.5) ng/ml SARS-CoV-2, RNA, NAAT (NEGATIVE) 09/17/22 09/17/22 Range/Units 15:50 16:00 WBC (4.8-10.8) K/ul RBC (3.93-5.22) M/uL Hgb (12.0-16.0) g/dl Hct (34.1-44.9) % MCV (80.0-100.0) fL MCH (25.0-34.0) pg MCHC (32.0-36.0) g/dL RDW Std Deviation (36.4-46.3) fL RDW Coeff of Christofer (11.5-14.5) % Plt Count (130-400) K/uL MPV (9.4-12.3) fL Immature Gran % (Auto) % Neut % (Auto) % Lymph % (Auto) % [place] % (Auto) % Eos % (Auto) % Baso % (Auto) % Neut # (Auto) (1.4-6.5) K/uL Lymph # (Auto) (1.2-3.4) K/uL [place] # (Auto) (0.24-0.82) K/uL Eos # (Auto) (0-0.50) K/uL Baso # (Auto) (0-0.2) K/uL Immature Gran # (Auto) (0.00-0.02) K/uL Sodium (136-145) mmol/L Potassium (3.5-5.1) mmol/L Chloride (98-107) mmol/L Carbon Dioxide (21-32) mmol/L Anion Gap (3-11) BUN (6-23) mg/dl Creatinine (0.6-1.2) mg/dl Est Cr Clr Drug Dosing Est GFR ( Amer) ml/min Est GFR (Non-Af Amer) ml/min BUN/Creatinine Ratio (10-20) Glucose (70-99(Fasting)) mg/dl Lactate 0.7 (0.4-2.0) mmol/L Calcium (8.5-10.1) mg/dl Total Bilirubin (0.2-1.0) mg/dl AST (13-39) U/L ALT (7-52) U/L Alkaline Phosphatase (34-104) U/L Total Protein (6.0-8.3) gm/dl Albumin (3.4-5.0) gm/dl Globulin (2.5-4.0) gm/dl Albumin/Globulin Ratio (0.9-2) Procalcitonin (0-0.5) ng/ml SARS-CoV-2, RNA, NAAT NEGATIVE (NEGATIVE) Administered Medications Discontinued Medications Dexamethasone Sodium Phosphate (DexamethasonePf 10 Mg/Ml Vial) 10 mg IV NOW ONE Stop: 09/17/22 15:14 Last Admin: 09/17/22 15:58 Dose: 10 mg Documented By: ADRIANNE Sodium Chloride (Nss 1000ml) 1,000 mls @ 999 mls/hr IV .Q1H1M ONE Stop: 09/17/22 16:13 Last Infusion: 09/17/22 16:59 Dose: 0 mls/hr Documented By: Admin: 09/17/22 15:57 Dose: 999 mls/hr Documented By: ADRIANNE Acetaminophen (Ofirmev) 1,000 mg in 100 mls @ 400 mls/hr IV NOW STA Stop: 09/17/22 15:27 Last Infusion: 09/17/22 16:19 Dose: 0 mls/hr Documented By: Admin: 09/17/22 16:03 Dose: 400 mls/hr Documented By: ADRIANNE Piperacillin Sod/Tazobactam (Sod 4.5 gm/ Dextrose) 120 mls @ 200 mls/hr IV NOW ONE; Protocol Stop: 09/17/22 15:48 Last Admin: 09/17/22 17:02 Dose: 200 mls/hr Documented By: ADRIANNE Ioversol (Optiray 350 100ml) 83 ml IV ONCE ONE Stop: 09/17/22 15:51 Last Admin: 09/17/22 15:50 Dose: 83 ml Documented By: RALPH Morphine Sulfate (Morphine Sulfate 4 Mg/Ml 1 Ml Carp\Vial) 4 mg IV NOW STA Stop: 09/17/22 15:14 Last Admin: 09/17/22 15:57 Dose: 4 mg Documented By: ADRIANNE Imaging Data Radiologist's Impression: Soft Tissue Neck CT 09/17/22 15:13 CT soft tissue neck w con HISTORY: 37 years-old Female Right mandibular swelling/dental inf/?abscess acute right-sided facial pain and swelling. Possible dental abscess. COMPARISON: None TECHNIQUE: Multiple axial CT images of the soft tissues of the neck were obtained following the intravenous administration of 83 cc Optiray 350. A dose lowering technique was used consistent with the principals of FLOR. FINDINGS: The imaged intracranial structures demonstrate no acute abnormality. The opacified vascular structures of the neck are within normal limits. The globes and orbits are unremarkable. Patent airway. Bilateral subcentimeter palatine tonsillar calcifications. The glottis and subglottic airway are unremarkable. The thyroid is within normal limits. Residual thymic tissue anterior mediastinum. Parotid and submandibular glands are unremarkable. No pneumothorax. Mild subpleural bleb formation of the right lung apex. Right 72 lymph nodes measuring up to 8 mm are noted along with bilateral cervical chain lymph nodes measuring up to 1.1 cm on the right, likely reactive. There is moderate subcutaneous and deep tissue edema within the right mandibular tissues tracking into the subareolar distribution and layering along the right platysma and sternocleidomastoid. No discrete abscess identified. There is no acute calvarial fracture. The mastoid air cells and middle ear cavities are clear. The paranasal sinuses are also generally clear. 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 A large periapical cyst is noted involving the right first mandibular molar with associated mild lateral cortical dehiscence. IMPRESSION: 1. Numerous dental caries with periapical cysts. 2. There is moderate subcutaneous and deep tissue edema involving the right mandibular and submandibular tissues suggestive of cellulitis without fluid collection to suggest abscess. 3. Mild cervical chain and submandibular lymphadenopathy, likely reactive. ACT 112: Negative or not required by law. The above report was generated using voice recognition software. It may contain grammatical, syntax or spelling errors. Electronically signed by: Aleksandr Saavedra M.D. 09/17/2022 4:03 PM Discharge Plan Visit Data Chief Complaint: Facial Injury/Pain Stated Complaint: SWOLLEN FACE ED Provider: Fabian Tinajero Discharge Problem: Cellulitis of jaw, right, Tobacco abuse, Dental caries Forms Stand Alone Forms: [facility] [place] Eximia Prescriptions Prescriptions: No Action diphenhydramine HCl [Benadryl Allergy] 25 mg Tablet 25 mg PO QAM ibuprofen 200 mg Tablet 800 mg PO Q6H PRN (Reason: Pain) Referrals Referrals: Erick Green MD [Primary Care Provider] -
--- NOTE | 2022-09-17 16:31 | History & Physical Report ---
Date of Service September 17, 2022 Assessment & Plan (1) Cellulitis of jaw, right: Plan: Due to rapid progression of symptoms with transient dysphagia earlier today, will admit patient for observation and IV antibiotics - Observe in PCU - Continue IV Zosyn started in the ED - Liquids as tolerated tonight - will give additional IVF at maintenance rate for now - Consult oral-maxillofacial surgery for additional recommendations - will make pt NPO after midnight in case any procedure would be needed - Follow labs - Scheduled IV acetaminophen with prn Morphine for breakthrough pain - Add IV pepcid due to GI upset, likely related to frequent NSAID use without food (2) Tobacco abuse: Plan: Discussed with patient that smoking can contribute to poor wound healing so would recommend that she quit. Plan Pt seen and reviewed with attending physician, Dr. Salinas. Plan of care discussed and as outlined above. Code Status: Full Code DVT Prophylaxis: Krishna Ghotra PA-C History of Present Illness Chief Complaint: Face swelling Primary Care Provider: Erick Green MD This is a 37 y/o female with a LMP of 09/14/22 and a PMH of seasonal allergies, prior dental infections who presented to the ED earlier today with progressive facial swelling and right lower jaw/tooth pain. Pt reports that she woke up day (2 days ago) with right lower tooth/jaw pain but was bearable so went to work. She continued to have pain when she got home from work Saturday evening so she took 4 ibuprofen for the pain and went to bed. When she woke up yesterday, the right side of her face was now swollen and the pain was worse. Today when she woke up the pain had become severe and was radiating to throat, forehead, and neck. She had some associated trouble swallowing, which she attributes to the pain. Due to the severity and rapid progression of her symptoms, she came to the ED for evaluation. She denies fevers, chills, sweats - has been checking her temp regularly. Notes that her daughter is also sick with fever and URI symptoms right now. Pt denies CP, SOB, N/V. She had some abdominal pain earlier today which she attributes to taking ibuprofen without eating much the last two days. It is better at the moment. Her main complaint at present is discomfort/pressure from the swelling in her face. She does not follow with dentist regularly due to financial cost - last visit was a few years ago for left-sided dental infection that ultimately required extraction of five teeth. Allergies Allergy/AdvReac Type Severity Reaction Status Date / Time pecan nut Allergy Severe ANAPHYLAXIS Unverified 09/17/22 16:40 walnut Allergy Severe ANAPHYLAXIS Verified 09/17/22 16:40 citalopram Allergy Unknown Unknown Verified 09/17/22 16:40 Home Medications Medication Instructions Recorded Confirmed Type diphenhydramine HCl 25 mg tablet 25 mg PO QAM 09/17/22 09/17/22 History (Benadryl Allergy) ibuprofen 200 mg tablet 800 mg PO Q6H PRN Pain 09/17/22 09/17/22 History Past Med/Surg History Medical History Allergic rhinitis Hx of Alice-Cruz syndrome Surgical History History of tooth extraction Family History Mother Hypertension Father Hypertension Grandmother (Paternal) Heart disease Diabetes Social History Smoking Status: Current every day smoker Cigarettes Per Day: 5-10; Second Hand Exposure: No; Do You Dip or Chew Tobacco: No; Tobacco Cessation Education Requested by Patient: No Hx Alcohol Use: Yes Alcohol type: wine Hx Substance Use: No Preferred Language: Kosovan Communication Ability: Effective Pelt Grader Required: No Beliefs That Will Affect Care: None Current Living Situation: Family Current Living Situation Comment: lives with 2 kids; pt's mother caring for kids while pt in hospital current occupational status: employed current occupation: [employer] Other Information That Helps Us Care for You: No Feels Safe at Home: Yes Safety Concerns: Feels Safe At This Time Dental Care, Regularly: No Assistive Devices: None Review of Systems Review of Systems: All systems reviewed & are unremarkable except as noted in HPI & below Constitutional: + fatigue; no fever and no chills Ear, Nose, Mouth, Throat: as per Subjective / HPI Respiratory: no cough and no dyspnea Cardiovascular: no chest pain, no palpitations and no edema Gastrointestinal: no nausea and no vomiting Genitourinary: no dysuria and no hematuria Musculoskeletal: + neck pain; no back pain Integumentary: no yellowing of the skin Neurologic: + headache(s) Physical Exam Constitutional: well developed and well nourished; no acute distress Eyes: + anicteric sclerae ENMT: Mouth: + trismus (mild - no difficulty handling own secretions); no muffled voice and no drooling right mandibular and submandibular swelling with associated erythema and tenderness, associated cervical and submandibular LAD Neck: trachea midline and + submandibular swelling Respiratory: no respiratory distress and no labored breathing Auscultation: lungs clear to auscultation bilaterally; no rales, no rhonchi and no wheezes Cardiovascular: Rate/Rhythm: regular rate and regular rhythm Vessels: radial pulses present Extremities: no edema Gastrointestinal (Abdomen): Inspection/Auscultation: normal bowel sounds; abdomen not distended Percussion/Palpation: abdomen soft Musculoskeletal: Head/Neck/Chest: normocephalic and head atraumatic Skin: + erythema (as noted above); no jaundice Neurologic: moves all extremities; no focal motor deficits and not confused Psychiatric: A+Ox3, euthymic affect Results & Data Results & Data ([facility]) Vital Signs (Past 12 Hours) Vital Signs Temp Pulse Pulse Resp BP BP Pulse Ox 09/17/22 16:00 85 17 119/85 100 09/17/22 15:30 78 17 122/85 100 09/17/22 15:00 71 18 117/91 99 09/17/22 14:30 76 19 136/82 100 09/17/22 14:09 74 19 123/89 100 09/17/22 11:33 36.4 C L 84 18 120/81 98 O2 Del Method 09/17/22 16:00 Room Air 09/17/22 15:30 Room Air 09/17/22 15:00 Room Air 09/17/22 14:30 Room Air 09/17/22 14:09 Room Air 09/17/22 11:33 Room Air Laboratory Results Laboratory Results - last 24 hr 09/17/22 09/17/22 09/17/22 11:50 11:50 11:50 WBC 10.19 RBC 4.36 Hgb 13.0 Hct 36.3 MCV 83.3 MCH 29.8 MCHC 35.8 RDW Std Deviation 36.7 RDW Coeff of Christofer 12.0 Plt Count 299 MPV 10.0 Immature Gran % (Auto) 0.3 Neut % (Auto) 70.2 Lymph % (Auto) 21.6 [place] % (Auto) 6.3 Eos % (Auto) 1.1 Baso % (Auto) 0.5 Neut # (Auto) 7.16 H Lymph # (Auto) 2.20 [place] # (Auto) 0.64 Eos # (Auto) 0.11 Baso # (Auto) 0.05 Immature Gran # (Auto) 0.03 H Sodium 140 Potassium 3.6 Chloride 107 Carbon Dioxide 28 Anion Gap 5 BUN 5 L Creatinine 0.68 Est Cr Clr Drug Dosing Not Reportable Est GFR ( Amer) 130.4 Est GFR (Non-Af Amer) 112.5 BUN/Creatinine Ratio 7.4 L Glucose 82 Lactate Calcium 8.6 Total Bilirubin 0.5 AST 9 L ALT 6 L Alkaline Phosphatase 48 Total Protein 6.8 Albumin 4.0 Globulin 2.8 Albumin/Globulin Ratio 1.4 Procalcitonin Pending SARS-CoV-2, RNA, NAAT 09/17/22 09/17/22 15:50 16:00 WBC RBC Hgb Hct MCV MCH MCHC RDW Std Deviation RDW Coeff of Christofer Plt Count MPV Immature Gran % (Auto) Neut % (Auto) Lymph % (Auto) [place] % (Auto) Eos % (Auto) Baso % (Auto) Neut # (Auto) Lymph # (Auto) [place] # (Auto) Eos # (Auto) Baso # (Auto) Immature Gran # (Auto) Sodium Potassium Chloride Carbon Dioxide Anion Gap BUN Creatinine Est Cr Clr Drug Dosing Est GFR ( Amer) Est GFR (Non-Af Amer) BUN/Creatinine Ratio Glucose Lactate Pending Calcium Total Bilirubin AST ALT Alkaline Phosphatase Total Protein Albumin Globulin Albumin/Globulin Ratio Procalcitonin SARS-CoV-2, RNA, NAAT Pending Medications Administered Discontinued Medications Dexamethasone Sodium Phosphate (DexamethasonePf 10 Mg/Ml Vial) 10 mg IV NOW ONE Stop: 09/17/22 15:14 Last Admin: 09/17/22 15:58 Dose: 10 mg Documented By: M Sodium Chloride (Nss 1000ml) 1,000 mls @ 999 mls/hr IV .Q1H1M ONE Stop: 12/12/22 16:13 Last Admin: 09/17/22 15:57 Dose: 999 mls/hr Documented By: ADRIANNE Acetaminophen (Ofirmev) 1,000 mg in 100 mls @ 400 mls/hr IV NOW STA Stop: 09/17/22 15:27 Last Infusion: 09/17/22 16:19 Dose: 0 mls/hr Documented By: Admin: 09/17/22 16:03 Dose: 400 mls/hr Documented By: ADRIANNE Ioversol (Optiray 350 100ml) 83 ml IV ONCE ONE Stop: 09/17/22 15:51 Last Admin: 09/17/22 15:50 Dose: 83 ml Documented By: RALPH Morphine Sulfate (Morphine Sulfate 4 Mg/Ml 1 Ml Carp\Vial) 4 mg IV NOW STA Stop: 09/17/22 15:14 Last Admin: 09/17/22 15:57 Dose: 4 mg Documented By: ADRIANNE Supervising Physician Co-Signing Physician Notes Patient seen and examined by me, care coordinated with Allison Villa PA-C, please refer to her note above for further detail. Pt is a 37 y/o female with a prior dental infections who presents with progressive facial swelling and right lower jaw/tooth pain. Pain is radiating to her ear and neck. She denies fevers, chills. She does not follow with dentist regularly due to financial cost - last visit was a few years ago for left-sided dental infection that ultimately required extraction of five teeth. Patient is currently sitting up in bed, in no acute distress, besides her pain. She is able to breathe comfortably on room air. She is awake alert oriented answering questions appropriately. She has significant swelling of right jaw, which is also quite tender to palpation. Lungs are clear to auscultation bilaterally without any significant crackles. Heart sounds regular. Abdomen soft nontender nondistended. Patient moves extremities: There is no lower extremity edema. Skin is warm and dry. Patient was given IV fluids in the ED, started on IV Zosyn. Oromaxillofacial surgeon consulted. Patient n.p.o. after midnight for likely procedure tomorrow. Continue with pain control as well. MD Rita
[2022-09-17] MEDS: SODIUM CHLORIDE 0.9% 1000ML 1,000 ML IV SCH (19:31)
[2022-09-17] MEDS: FAMOTIDINE 20 MG in SYRINGE 3 ML IV SCH (19:31)
[2022-09-17] MEDS: PIPERACILLIN/TAZOBACTAM 3.375 GM in DEXTROSE 5% 100 ML IV SCH (21:37)
[2022-09-17] MEDS: ACETAMINOPHEN 1,000 MG/100 ML VIAL IV SCH (22:53)
[2022-09-18] MEDS: PIPERACILLIN/TAZOBACTAM 3.375 GM in DEXTROSE 5% 100 ML IV SCH ×3 (05:23→21:57)
[2022-09-18] MEDS: SODIUM CHLORIDE 0.9% 1000ML 1,000 ML IV SCH (05:23)
[2022-09-18] MEDS: ACETAMINOPHEN 1,000 MG/100 ML VIAL IV SCH ×3 (06:31→23:07)
[2022-09-18 07:17] LABS: Basophils # (auto) 0.02 K/uL (0-0.2); Basophils % (auto) 0.2 %; Hematocrit (blood only) 32.5 % (34.1-44.9); Hemoglobin 11.8 g/dl (12.0-16.0); Immature Granulocytes # (auto) 0.07 K/uL (0.00-0.02); Immature Granulocytes % (auto) 0.7 %; Lymphocytes # (auto) 1.08 K/uL (1.2-3.4); Lymphocytes % (auto) 11.2 %; Mean Corpuscular Hemoglobin 30.7 pg (25.0-34.0); Mean Corpuscular Hgb Conc 36.3 g/dL (32.0-36.0); Mean Corpuscular Volume 84.6 fL (80.0-100.0); Mean Platelet Volume 10.4 fL (9.4-12.3); Monocytes # (auto) 0.34 K/uL (0.24-0.82); Monocytes % (auto) 3.5 %; Neutrophils # (auto) 8.15 K/uL (1.4-6.5); Neutrophils % (auto) 84.4 %; Platelet Count 268 K/uL (130-400); Red Blood Count 3.84 M/uL (3.93-5.22); White Blood Count 9.66 K/ul (4.8-10.8)
[2022-09-18 07:42] LABS: BUN Creatinine Ratio 6.8 (10-20); Calcium 8.4 mg/dl (8.5-10.1); Creatinine Clr Calc Pharmacy 130.7 ml/min; Est GFR (African American) 136.7 ml/min; Est GFR (Non-African American) 117.9 ml/min; Potassium 3.9 mmol/L (3.5-5.1)
[2022-09-18] MEDS: FAMOTIDINE 20 MG in SYRINGE 3 ML IV SCH (08:27)
[2022-09-18] MEDS ORDERED: FLUARIX QUADRIVALENT 0.5 ML SYR IM ONE (09:00)
--- NOTE | 2022-09-18 09:50 | Hospitalist Progress Note ---
Date of Service September 18, 2022 Assessment & Plan (1) Cellulitis of jaw, right: Plan: Due to rapid progression of symptoms with transient dysphagia, admitted for IV antibiotics and surg. procedure ( tooth extraction, and I&D) - Continue IV Zosyn started in the ED - IVF at maintenance rate for now - Consulted oral-maxillofacial surgery - plan for tooth extraction, and I&D - Scheduled IV acetaminophen with prn Morphine for breakthrough pain (2) Tobacco abuse: Plan: - Counseling provided Plan Code Status: Full Code DVT Prophylaxis: SCDs Admission and Anticipated Discharge Date Admission Date: September 17, 2022 Subjective Pt seen in follow up of cellulitis of right jaw, abscessed tooth Currently laying in bed, in no acute distress No fevers chills chest pain shortness of breath, difficulty swallowing Reports pain is much better controlled now There is a plan for surgical procedure, tooth extraction and I&D by Dr. Cornejo Review of Systems Review of Systems: All systems reviewed & are unremarkable except as noted in Subjective Physical Exam Physical Exam: Constitutional:L well developed and well nourished; n o acute distress Eyes: + anicteric scler ae ENMT: + right mandibula r and submandibula r swelling Neck: supple Respiratory: no respiratory dis tress and no labor ed breathing Ausc ultation: lungs cl ear to auscultatio n bilaterally; no rales, no rhonchi and no wheezes Cardiovascular:L Rate/Rhythm: regul ar rate and regula r rhythm Extremit ies: no edema Gastrointestinal ( Abdomen):L Inspection/Auscult ation: normal bradly l sounds; abdomen not distended Per cussion/Palpation: abdomen soft Musculoskeletal: Head/Neck/Chest: n ormocephalic and h ead atraumatic Skin: warm, dry Neurologic: A+Ox3, euthymic af fect, speech fluen t, moves extremiti es Results & Data Results & Data ([facility]) Vital Signs (Past 12 Hours) Vital Signs Temp Pulse Resp BP Pulse Ox O2 Del Method 09/18/22 07:37 37 C 63 16 100/66 98 Room Air 09/17/22 22:54 36.5 C 81 16 102/65 98 Room Air Laboratory Results 09/18/22 09/18/22 09/17/22 Range/Units 06:22 06:22 16:00 WBC 9.66 (4.8-10.8) K/ul RBC 3.84 L (3.93-5.22) M/uL Hgb 11.8 L (12.0-16.0) g/dl Hct 32.5 L (34.1-44.9) % MCV 84.6 (80.0-100.0) fL MCH 30.7 (25.0-34.0) pg MCHC 36.3 H (32.0-36.0) g/dL RDW Std Deviation 37.0 (36.4-46.3) fL RDW Coeff of Christofer 12.0 (11.5-14.5) % Plt Count 268 (130-400) K/uL MPV 10.4 (9.4-12.3) fL Immature Gran % (Auto) 0.7 % Neut % (Auto) 84.4 % Lymph % (Auto) 11.2 % Dubois % (Auto) 3.5 % Eos % (Auto) 0.0 % Baso % (Auto) 0.2 % Neut # (Auto) 8.15 H (1.4-6.5) K/uL Lymph # (Auto) 1.08 L (1.2-3.4) K/uL [place] # (Auto) 0.34 (0.24-0.82) K/uL Eos # (Auto) 0.00 (0-0.50) K/uL Baso # (Auto) 0.02 (0-0.2) K/uL Immature Gran # (Auto) 0.07 H (0.00-0.02) K/uL Sodium 138 (136-145) mmol/L Potassium 3.9 (3.5-5.1) mmol/L Chloride 108 H (98-107) mmol/L Carbon Dioxide 25 (21-32) mmol/L Anion Gap 5 (3-11) BUN 4 L (6-23) mg/dl Creatinine 0.59 L (0.6-1.2) mg/dl Est Cr Clr Drug Dosing 130.7 Est GFR ( Amer) 136.7 ml/min Est GFR (Non-Af Amer) 117.9 ml/min BUN/Creatinine Ratio 6.8 L (10-20) Glucose 103 H (70-99(Fasting)) mg/dl Lactate 0.7 (0.4-2.0) mmol/L Calcium 8.4 L (8.5-10.1) mg/dl Total Bilirubin (0.2-1.0) mg/dl AST (13-39) U/L ALT (7-52) U/L Alkaline Phosphatase (34-104) U/L Total Protein (6.0-8.3) gm/dl Albumin (3.4-5.0) gm/dl Globulin (2.5-4.0) gm/dl Albumin/Globulin Ratio (0.9-2) Procalcitonin (0-0.5) ng/ml SARS-CoV-2, RNA, NAAT (NEGATIVE) 09/17/22 09/17/22 09/17/22 Range/Units 15:50 11:50 11:50 WBC (4.8-10.8) K/ul RBC (3.93-5.22) M/uL Hgb (12.0-16.0) g/dl Hct (34.1-44.9) % MCV (80.0-100.0) fL MCH (25.0-34.0) pg MCHC (32.0-36.0) g/dL RDW Std Deviation (36.4-46.3) fL RDW Coeff of Christofer (11.5-14.5) % Plt Count (130-400) K/uL MPV (9.4-12.3) fL Immature Gran % (Auto) % Neut % (Auto) % Lymph % (Auto) % [place] % (Auto) % Eos % (Auto) % Baso % (Auto) % Neut # (Auto) (1.4-6.5) K/uL Lymph # (Auto) (1.2-3.4) K/uL [place]ois # (Auto) (0.24-0.82) K/uL Eos # (Auto) (0-0.50) K/uL Baso # (Auto) (0-0.2) K/uL Immature Gran # (Auto) (0.00-0.02) K/uL Sodium 140 (136-145) mmol/L Potassium 3.6 (3.5-5.1) mmol/L Chloride 107 (98-107) mmol/L Carbon Dioxide 28 (21-32) mmol/L Anion Gap 5 (3-11) BUN 5 L (6-23) mg/dl Creatinine 0.68 (0.6-1.2) mg/dl Est Cr Clr Drug Dosing Not Reportable Est GFR ( Amer) 130.4 ml/min Est GFR (Non-Af Amer) 112.5 ml/min BUN/Creatinine Ratio 7.4 L (10-20) Glucose 82 (70-99(Fasting)) mg/dl Lactate (0.4-2.0) mmol/L Calcium 8.6 (8.5-10.1) mg/dl Total Bilirubin 0.5 (0.2-1.0) mg/dl AST 9 L (13-39) U/L ALT 6 L (7-52) U/L Alkaline Phosphatase 48 (34-104) U/L Total Protein 6.8 (6.0-8.3) gm/dl Albumin 4.0 (3.4-5.0) gm/dl Globulin 2.8 (2.5-4.0) gm/dl Albumin/Globulin Ratio 1.4 (0.9-2) Procalcitonin 0.17 (0-0.5) ng/ml SARS-CoV-2, RNA, NAAT NEGATIVE (NEGATIVE) 09/17/22 Range/Units 11:50 WBC 10.19 (4.8-10.8) K/ul RBC 4.36 (3.93-5.22) M/uL Hgb 13.0 (12.0-16.0) g/dl Hct 36.3 (34.1-44.9) % MCV 83.3 (80.0-100.0) fL MCH 29.8 (25.0-34.0) pg MCHC 35.8 (32.0-36.0) g/dL RDW Std Deviation 36.7 (36.4-46.3) fL RDW Coeff of Christofer 12.0 (11.5-14.5) % Plt Count 299 (130-400) K/uL MPV 10.0 (9.4-12.3) fL Immature Gran % (Auto) 0.3 % Neut % (Auto) 70.2 % Lymph % (Auto) 21.6 % [place] % (Auto) 6.3 % Eos % (Auto) 1.1 % Baso % (Auto) 0.5 % Neut # (Auto) 7.16 H (1.4-6.5) K/uL Lymph # (Auto) 2.20 (1.2-3.4) K/uL [place] # (Auto) 0.64 (0.24-0.82) K/uL Eos # (Auto) 0.11 (0-0.50) K/uL Baso # (Auto) 0.05 (0-0.2) K/uL Immature Gran # (Auto) 0.03 H (0.00-0.02) K/uL Sodium (136-145) mmol/L Potassium (3.5-5.1) mmol/L Chloride (98-107) mmol/L Carbon Dioxide (21-32) mmol/L Anion Gap (3-11) BUN (6-23) mg/dl Creatinine (0.6-1.2) mg/dl Est Cr Clr Drug Dosing Est GFR ( Amer) ml/min Est GFR (Non-Af Amer) ml/min BUN/Creatinine Ratio (10-20) Glucose (70-99(Fasting)) mg/dl Lactate (0.4-2.0) mmol/L Calcium (8.5-10.1) mg/dl Total Bilirubin (0.2-1.0) mg/dl AST (13-39) U/L ALT (7-52) U/L Alkaline Phosphatase (34-104) U/L Total Protein (6.0-8.3) gm/dl Albumin (3.4-5.0) gm/dl Globulin (2.5-4.0) gm/dl Albumin/Globulin Ratio (0.9-2) Procalcitonin (0-0.5) ng/ml SARS-CoV-2, RNA, NAAT (NEGATIVE) Medications Administered Current Inpatient Medications Acetaminophen (Ofirmev) 1,000 mg in 100 mls @ 400 mls/hr IV Q8H RAZA Stop: 09/20/22 23:14 Last Infusion: 09/18/22 06:46 Dose: Infused Piperacillin Sod/Tazobactam (Sod 3.375 gm/ Dextrose) 115 mls @ 28.75 mls/hr IV Q8H RAZA; Protocol Stop: 09/27/22 21:59 Last Infusion: 12/13/22 09:23 Dose: Infused Sodium Chloride (Nss 1000ml) 1,000 mls @ 100 mls/hr IV .Q10H RAZA Stop: 09/18/22 14:38 Last Admin: 09/18/22 05:23 Dose: 100 mls/hr Famotidine 20 mg/ Syringe 5 mls @ 2.5 mls/min IV DAILY RAZA Stop: 10/17/22 18:38 Last Admin: 09/18/22 08:27 Dose: 2.5 mls/min Morphine Sulfate (Morphine Sulfate 2 Mg/Ml Carp) 2 mg IV Q6H PRN PRN Reason: Pain Stop: 10/01/22 17:07
--- NOTE | 2022-09-18 13:28 | Anesthesiology Consultation ---
Date of Service September 18, 2022 Assessment & Plan (1) Encounter for pre-operative examination: Chart Review Chart Review: Acceptable Risk for Surgery and Patient NOT seen in Pre Admission Testing Consults Requested none History Surgery Operation Date: 09/18/22 11:00 Proposed Procedures p Right Facial Incision and Drainage - Eric Cornejo DMD s Tooth Extraction - Eric Cornejo DMD Height/Weight Height: 5 ft 8.5 in Weight: 62.8 kg Allergies Allergy/AdvReac Type Severity Reaction Status Date / Time pecan nut Allergy Severe ANAPHYLAXIS Unverified 09/17/22 16:40 walnut Allergy Severe ANAPHYLAXIS Verified 09/17/22 16:40 citalopram Allergy Unknown Unknown Verified 09/17/22 16:40 Medications Home Medications Medication Instructions Recorded Confirmed Last Taken diphenhydramine HCl 25 mg tablet 25 mg PO QAM 09/17/22 09/17/22 09/17/22 (Benadryl Allergy) ibuprofen 200 mg tablet 800 mg PO Q6H PRN Pain 09/17/22 09/17/22 09/17/22 Active Medications Generic Name Dose Route Start Last Admin Trade Name Freq PRN Reason Stop Dose Admin Acetaminophen 1,000 mg in 100 mls @ 400 mls/hr 09/17/22 23:15 09/18/22 06:46 Ofirmev IV 09/20/22 23:14 Infused Q8H RAZA Infusion Piperacillin Sod/Tazobactam 115 mls @ 28.75 mls/hr 09/17/22 22:00 09/18/22 09:23 Sod 3.375 gm/ Dextrose IV 09/27/22 21:59 Infused Q8H RAZA Infusion Protocol Sodium Chloride 1,000 mls @ 100 mls/hr 09/17/22 18:39 09/18/22 05:23 Nss 1000ml IV 09/18/22 14:38 100 mls/hr .Q10H RAZA Administration Famotidine 20 mg/ Syringe 5 mls @ 2.5 mls/min 09/17/22 18:39 09/18/22 08:27 IV 10/17/22 18:38 2.5 mls/min DAILY RAZA Administration Past Medical History Medical History Allergic rhinitis Hx of Alice-Cruz syndrome This is a 37 y/o female with a LMP of 12/9/22 and a PMH of seasonal allergies, prior dental infections who presented to the ED earlier today with progressive facial swelling and right lower jaw/tooth pain. Pt reports that she woke up day (2 days ago) with right lower tooth/jaw pain but was bearable so went to work. She continued to have pain when she got home from work Saturday evening so she took 4 ibuprofen for the pain and went to bed. When she woke up yesterday, the right side of her face was now swollen and the pain was worse. Today when she woke up the pain had become severe and was radiating to throat, forehead, and neck. She had some associated trouble swallowing, which she attributes to the pain. Due to the severity and rapid progression of her symptoms, she came to the ED for evaluation. Past Family History Family History Mother Hypertension Father Hypertension Grandmother (Paternal) Heart disease Diabetes Past Surgical History Surgical History History of tooth extraction Social History Smoking Status: Current every day smoker tobacco type: cigarettes Smoking cigarettes per day: 5-10 Do You Dip or Chew Tobacco: No Hx Alcohol Use: Yes Alcohol type: wine alcohol intake frequency: holidays/special occasions only Hx Substance Use: No substance use type: does not use Physical Exam Vital Signs Last Vital Signs Temp 37 C 09/18/22 07:37 Pulse 63 09/18/22 07:37 Resp 16 09/18/22 07:37 BP 100/66 09/18/22 07:37 Pulse Ox 98 09/18/22 07:37 O2 Del Method 09/18/22 07:37 Testing Laboratory Results 09/18/22 06:22 09/18/22 06:22
[2022-09-18] MEDS: MoRPHine SULFATE 2 MG/ML CARP IV PRN ×2 (14:22→20:09)
--- NOTE | 2022-09-18 15:22 | Oral/Maxillofacial Consult ---
Date of Consultation September 18, 2022 Assessment & Plan (1) Cellulitis of jaw, right: (2) Tobacco abuse: (3) Dental caries: (4) Encounter for pre-operative examination: History of Present Illness Attending Physician: Dean Salinas MD History of Present Illness Oral Maxillofacial Surgery Exam Present Complaint: I have pain/swelling/drainage from my infected teeth. Symptoms have been ongoing for a while. Now pain and a swollen jaw getting worse--admitted to [facility] Dr Consulted for acute facial infection Oral Exam: Finding--P-cor associated with the # 30 grossly carious and abscessed tooth , tender gingival tissue with deep pocket formation.Teeth are in an abnormal position and removal is clinical indicated. Imaging: CT soft tissue neck w con HISTORY: 37 years-old Female Right mandibular swelling/dental inf/?abscess acute right-sided facial pain and swelling. Possible dental abscess. COMPARISON: None TECHNIQUE: Multiple axial CT images of the soft tissues of the neck were obtained following the intravenous administration of 83 cc Optiray 350. A dose lowering technique was used consistent with the principals of ALARA. FINDINGS: The imaged intracranial structures demonstrate no acute abnormality. The opacified vascular structures of the neck are within normal limits. The globes and orbits are unremarkable. Patent airway. Bilateral subcentimeter palatine tonsillar calcifications. The glottis and subglottic airway are unremarkable. The thyroid is within normal limits. Residual thymic tissue anterior mediastinum. Parotid and submandibular glands are unremarkable. No pneumothorax. Mild subpleural bleb formation of the right lung apex. Right 72 lymph nodes measuring up to 8 mm are noted along with bilateral cervical chain lymph nodes measuring up to 1.1 cm on the right, likely reactive. There is moderate subcutaneous and deep tissue edema within the right mandibular tissues tracking into the subareolar distribution and layering along the right platysma and sternocleidomastoid. No discrete abscess identified. There is no acute calvarial fracture. The mastoid air cells and middle ear cavities are clear. The paranasal sinuses are also generally clear. 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 A large periapical cyst is noted involving the right first mandibular molar with associated mild lateral cortical dehiscence. IMPRESSION: 1. Numerous dental caries with periapical cysts. 2. There is moderate subcutaneous and deep tissue edema involving the right mandibular and submandibular tissues suggestive of cellulitis without fluid collection to suggest abscess. 3. Mild cervical chain and submandibular lymphadenopathy, likely reactive. Soft tissue: Swollen subperiosteal apace lower right, submandibular space. floor of the mouth, tongue, hard/soft palate, posterior pharyngeal area all with in normal limits, no pathology or abnormal findings noted. Oral Care: Overall oral care is fair Occlusion: Class I missing teeth TMJ exam: No pop, clicking, pain, good ROM, No history of TMJ injury or dysfunction Periodontal exam: Mild periodontal gingival tissue inflammations with early evidence of periodontal pathology. Head/Neck exam: Neck is supple, FROM, Able to extend and flex neck w/o difficulty, no masses, no abnormalities, no airway issues, no evidence of sleep apnea. Treatment Plan: I&D right submandibular and periosteal space Removal of # 30 and # 4 NOBLE Set up with general anesthesia in hospital due to complexity of the procedure I reviewed the treatment plan and consent with the patient Understanding was expressed. Time was given for questions regarding the surgery, risks and post op care. Discussed alternative to treatment--procedure as planned, Do not do surgery The following teeth are decayed and fractured and removal is indicated NOBLE: 4 and 30 Risks discussed: Bleeding,Pain,swelling,infection, dry socket, delayed healing, nerve injury to face,lips,tongue,chin area which could be permanent (rare). TMJ, jaw stiffness, change in bite (rare), ear pain (referred). Sinus problems like fistula or infection. Need to leave a small root fragment in place to avoid injury to nerve or sinus. Relationship of wisdom teeth to nerve/sinus and risk of jaw fracture. Home care reviewed: tooth brushing, rinsing, follow up care with Dr Cornejo. diet=[id number] dental. Discussed activity level, driving/work while on Rx pain Meds. Surgery to be set NOBLE today to drain the infection Allergies Allergy/AdvReac Type Severity Reaction Status Date / Time pecan nut Allergy Severe ANAPHYLAXIS Unverified 09/17/22 16:40 walnut Allergy Severe ANAPHYLAXIS Verified 09/17/22 16:40 citalopram Allergy Unknown Unknown Verified 09/17/22 16:40 Home Medications Medication Instructions Recorded Confirmed Type diphenhydramine HCl 25 mg tablet 25 mg PO QAM 09/17/22 09/17/22 History (Benadryl Allergy) ibuprofen 200 mg tablet 800 mg PO Q6H PRN Pain 09/17/22 09/17/22 History Patient History Medical History Allergic rhinitis Hx of Alice-Cruz syndrome Surgical History History of tooth extraction Family History Mother Hypertension Father Hypertension Grandmother (Paternal) Heart disease Diabetes Social History Smoking Status: Current every day smoker Cigarettes Per Day: 5-10; Second Hand Exposure: No; Do You Dip or Chew Tobacco: No; Tobacco Cessation Education Requested by Patient: No Hx Alcohol Use: Yes Alcohol type: wine Hx Substance Use: No Preferred Language: [place] Communication 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: 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 Beliefs That Will Affect Care: None Current Living Situation: Family Current Living Situation Comment: lives with 2 kids; pt's mother caring for kids while pt in hospital current occupational status: employed current occupation: [employer] Other Information That Helps Us Care for You: No Feels Safe at Home: Yes Safety Concerns: Feels Safe At This Time Dental Care, Regularly: No Assistive Devices: None Results & Data ([facility]) Vital Signs (Past 12 Hours) Vital Signs Temp Pulse Resp BP Pulse Ox O2 Del Method 09/18/22 15:07 36.9 C 71 16 108/70 98 Room Air 09/18/22 07:37 37 C 63 16 100/66 98 Room Air PG Care Time/CCT Total # of Minutes Spent Total Time Spent with Patient: Total time spent is greater than 50% in coordination of care (as documented) at patient's floor/unit and/or counseling patient: Coding Level of Care Code 99894 Inpt Consult Level 2 Diagnoses Cellulitis of jaw, right L03.211 Tobacco abuse Z72.0 Dental caries K02.9 Encounter for pre-operative examination Z01.818
[2022-09-18] MEDS ORDERED: ONDANSETRON INJ 2 MG/ML 2 ML VIAL IV PRN (17:59)
[2022-09-18] MEDS ORDERED: ePHEDrine sulfate 50 MG/ML AMP IV PRN (17:59)
[2022-09-18] MEDS ORDERED: ATROPINE SULFATE 0.1 MG/ML 10ML SYR IV PRN (17:59)
[2022-09-18] MEDS ORDERED: fentaNYL citrate 100 MCG/2 ML VIAL IV PRN (17:59)
[2022-09-18] MEDS ORDERED: MIDAZOLAM HCL 1 MG/ML 2ML VIAL ONE (18:04)
[2022-09-18] MEDS ORDERED: fentaNYL citrate 100 MCG/2 ML VIAL ONE (18:04)
--- NOTE | 2022-09-18 18:06 | History & Physical Bridge Note ---
Date of Service September 18, 2022 History & Physical Bridge Note I have examined the patient, reviewed the History & Physical and in the interval since the performance of the History & Physical I have noted the following changes of clinical significance: no changes noted OK for I and D with dental extractions # 30 and # 4
[2022-09-18] MEDS ORDERED: BUPIVACAINE/EPINEPHRINE 0.5% 1:200,000 1.8 ML CARP ONE (18:09)
[2022-09-18] MEDS ORDERED: CHLORHEXIDINE GLUCONATE 0.12% 480 ML MT ONE (18:09)
[2022-09-18] MEDS ORDERED: ONDANSETRON INJ 2 MG/ML 2 ML VIAL ONE (18:35)
[2022-09-18] MEDS ORDERED: NEOSTIGMINE METHYLSULFATE 1 MG/ML 10ML VIAL ONE (18:35)
[2022-09-18] MEDS ORDERED: DEXAMETHASONE SOD INJ 4 MG/ML VIAL ONE (18:35)
[2022-09-18] MEDS ORDERED: LIDOCAINE 2% 2 ML VIAL/AMP(20MG/ML) INFIL ONE (18:35)
[2022-09-18] MEDS ORDERED: ROCURONIUM BROMIDE 10 MG/ML 5 ML VIAL IV ONE (18:35)
[2022-09-18] MEDS ORDERED: LARYING-O-JET KIT (LTA) ONE (18:35)
[2022-09-18] MEDS ORDERED: GLYCOPYRROLATE 0.2 MG/ML VIAL ONE (18:35)
[2022-09-18] MEDS ORDERED: PROPOFOL IV EMULSION 10 MG/ML 20 ML VIAL IV ONE (18:35)
[2022-09-18] MEDS ORDERED: PROMETHAZINE HCL 6.25 MG in SODIUM CHLORIDE 0.9% 50 ML IV PRN (19:36)
--- NOTE | 2022-09-18 19:37 | Anesthesiology Progress Note ---
Date of Service September 18, 2022 Anesthesia Post Procedure Vital Signs Vital Signs: Temp Pulse Pulse Resp BP Pulse Ox O2 Del Method 09/18/22 19:25 55 L 15 138/90 98 Room Air 09/18/22 19:15 73 14 126/85 97 Room Air 09/18/22 19:05 97.7 F 92 H 18 124/82 95 Room Air 09/18/22 17:32 98.8 F 68 18 114/81 97 Room Air 09/18/22 15:07 98.4 F 71 16 108/70 98 Room Air 09/18/22 07:37 98.6 F 63 16 100/66 98 Room Air 09/17/22 22:54 97.7 F 81 16 102/65 98 Room Air Pain Intensity Jaw: Pain Intensity: 5 Transfer of Care Handoff Completed per policy Notes Mental Status: alert / awake / arousable and participated in evaluation Patient Amnestic to Procedure: Yes Nausea / Vomiting: adequately controlled Pain: adequately controlled Airway Patency, RR, SpO2: stable & adequate BP & HR: stable & adequate Hydration State: stable & adequate Anesthetic Complications: no major complications apparent and Pt Satisfied with anesthetic care
[2022-09-18] MEDS ORDERED: COUGH DROP (SUGAR FREE) LOZ 24 LOZ/1 BOX BUCCAL ONE (20:31)
[2022-09-19] MEDS: MoRPHine SULFATE 2 MG/ML CARP IV PRN ×2 (02:19→10:07)
[2022-09-19] MEDS: ACETAMINOPHEN 1,000 MG/100 ML VIAL IV SCH (06:18)
[2022-09-19] MEDS: PIPERACILLIN/TAZOBACTAM 3.375 GM in DEXTROSE 5% 100 ML IV SCH (06:18)
[2022-09-19 07:05] LABS: Basophils # (auto) 0.02 K/uL (0-0.2); Basophils % (auto) 0.2 %; Hematocrit (blood only) 33.3 % (34.1-44.9); Hemoglobin 12.1 g/dl (12.0-16.0); Immature Granulocytes # (auto) 0.04 K/uL (0.00-0.02); Immature Granulocytes % (auto) 0.4 %; Lymphocytes # (auto) 1.31 K/uL (1.2-3.4); Mean Corpuscular Hgb Conc 36.3 g/dL (32.0-36.0); Mean Corpuscular Volume 82.6 fL (80.0-100.0); Mean Platelet Volume 10.2 fL (9.4-12.3); Monocytes # (auto) 0.24 K/uL (0.24-0.82); Monocytes % (auto) 2.4 %; Neutrophils # (auto) 8.49 K/uL (1.4-6.5); Platelet Count 292 K/uL (130-400); RDW Standard Deviation 36.9 fL (36.4-46.3); Red Blood Count 4.03 M/uL (3.93-5.22)
[2022-09-19 07:27] LABS: Calcium 8.3 mg/dl (8.5-10.1); Creatinine Clr Calc Pharmacy 111.7 ml/min; Est GFR (African American) 129.8 ml/min; Potassium 4.1 mmol/L (3.5-5.1)
--- NOTE | 2022-09-19 09:29 | Oral/Maxillofacial Progress Nt ---
Date of Service September 19, 2022 Assessment & Plan Admission and Anticipated Discharge Date Admission Date: September 18, 2022 Subjective Post Op infection evaluation 14 hrs The infected area is now much softer and no drainage noted Swelling down Swelling is gone and the tissue is healing well No drainage is noted.. Infection has responded very well to the antibiotics and the extraction/ I and D. I requested that the patient continue with massage, heat and wound care. Rx Augmentin and Vicodin At this time the area is well healed and responded well to treatment. RTC at 1 pm Oct 01 Results & Data ([facility]) Vital Signs (Past 12 Hours) Vital Signs Temp Pulse Resp BP Pulse Ox O2 Del Method 09/19/22 07:19 36.5 C 59 L 16 101/69 98 Room Air 09/19/22 03:57 36.5 C 60 16 98/62 L 97 Room Air 09/18/22 23:15 36.9 C 56 L 16 96/60 L 96 Room Air 09/18/22 22:00 36.3 C L 62 18 107/72 98 Room Air PG Care Time/CCT Total # of Minutes Spent Total Time Spent with Patient: Total time spent is greater than 50% in coordination of care (as documented) at patient's floor/unit and/or counseling patient: Coding Level of Care Code None
[2022-09-19] MEDS: FAMOTIDINE 20 MG in SYRINGE 3 ML IV SCH (10:06)
--- NOTE | 2022-09-19 10:56 | Discharge Summary ---
Date of Service September 19, 2022 Admission HPI Per Admitting Provider This is a 37 y/o female with a LMP of 09/14/22 and a PMH of seasonal allergies, prior dental infections who presented to the ED earlier today with progressive facial swelling and right lower jaw/tooth pain. Pt reports that she woke up day (2 days ago) with right lower tooth/jaw pain but was bearable so went to work. She continued to have pain when she got home from work Saturday evening so she took 4 ibuprofen for the pain and went to bed. When she woke up yesterday, the right side of her face was now swollen and the pain was worse. Today when she woke up the pain had become severe and was radiating to throat, forehead, and neck. She had some associated trouble swallowing, which she attributes to the pain. Due to the severity and rapid progression of her symptoms, she came to the ED for evaluation. She denies fevers, chills, sweats - has been checking her temp regularly. Notes that her daughter is also sick with fever and URI symptoms right now. Pt denies CP, SOB, N/V. She had some abdominal pain earlier today which she attributes to taking ibuprofen without eating much the last two days. It is better at the moment. Her main complaint at present is discomfort/pressure from the swelling in her face. She does not follow with dentist regularly due to financial cost - last visit was a few years ago for left-sided dental infection that ultimately required extraction of five teeth. Admission Exam Per Admitting Provider Constitutional: well developed and well nourished; no acute distress Eyes: + anicteric sclerae ENMT: Mouth: + trismus (mild - no difficulty handling own secretions); no muffled voice and no drooling right mandibular and submandibular swelling with associated erythema and tenderness, associated cervical and submandibular LAD Neck: trachea midline and + submandibular swelling Respiratory: no respiratory distress and no labored breathing Auscultation: lungs clear to auscultation bilaterally; no rales, no rhonchi and no wheezes Cardiovascular: Rate/Rhythm: regular rate and regular rhythm Vessels: radial pulses present Extremities: no edema Gastrointestinal (Abdomen): Inspection/Auscultation: normal bowel sounds; abdomen not distended Percussion/Palpation: abdomen soft Musculoskeletal: Head/Neck/Chest: normocephalic and head atraumatic Skin: + erythema (as noted above); no jaundice Neurologic: moves all extremities; no focal motor deficits and not confused Psychiatric: A+Ox3, euthymic affect Principal Diagnosis Dental Caries Cellulitis of jaw, right Discharge Exam GENERAL: Alert and oriented x3. NAD, on RA. HEENT: No pallor, no icterus. Pupils equal, round and reactive to light. Oral mucosa moist. Rt mandibular swelling +, decreased mouth opening. NECK: No JVD, no neck masses. HEART: S1 and S2 heard. Regular rate and rhythm. No murmur, no gallop. RESPIRATORY SYSTEM: Normal AP diameter. No accessory muscle use. No wheezing, no crackles. ABDOMEN: Soft, bowel sounds present, nontender, no distention. CENTRAL NERVOUS SYSTEM: No facial droop. Speech is clear. Obeys simple commands. Moves extremities. EXTREMITIES: No edema, no erythema seen. Discharge Data Allergies Allergy/AdvReac Type Severity Reaction Status Date / Time pecan nut Allergy Severe ANAPHYLAXIS Unverified 09/17/22 16:40 walnut Allergy Severe ANAPHYLAXIS Verified 09/17/22 16:40 citalopram Allergy Unknown Unknown Verified 09/17/22 16:40 Consultations 09/17/22 16:23 ED Decision to Admit Stat 09/17/22 18:39 Consult Oromaxillofacial Surgery Routine Procedures Performed Operation Date: 09/18/22 11:00 Actual Procedures p Right Facial Incision and Drainage - Eric Cornejo DMD s Tooth Extraction(Right) - Eric Cornejo DMD Ordered Studies 09/17/22 15:13 CT soft tissue neck w con Stat Hospital Course (1) Cellulitis of jaw, right: Plan 37-year-old lady was being managed for cellulitis of toe, right. Was a started on Zosyn, Dr. Cornejo evaluated her for dental caries and periapical cyst, patient is status post I&D right submandibular and periosteal space and removal of #30 and #4. Patient doing well, reports pain under control, with some right jaw swelling, decreased mouth opening, patient to continue on liquid diet for some days, being discharged on Augmentin and pain management. Patient to follow-up with PCP and Dr. Cornejo upon discharge. Patient made aware. Pt to continue w/ massage, heat to the affected area and vicodin upon DC. Home Health Attestation I certify that this patient is under my care and that I, or a physicians assistant passenger locomotive engineer working with me, had a face to-face encounter that meets the home health [id number] encounter requirements with this patient. The encounter with the patient was in whole, or in part, for the following medical condition, which is the primary reason for home health care (list medical condition): I certify that, based on my findings, the following services are medically necessary home health services: My clinical findings support the need for the above services because: Further, I certify that my clinical findings support that this patient is homebound (i.e. absences from home require considerable and taxing effort and are for medical reasons or mandaen services or infrequently or of short duration when for other reasons) because: Certification for Home Health Services: Based on the above findings, I certify that this patient is confined to the home and needs intermittent fci care, physical therapy and/or speech therapy or continues to need occupational therapy. The patient is under my care, and I have initiated the establishment of the plan of care. This patient will be followed by a physician who will periodically review the plan of care. Total Time Total Time Spent Total Time Spent (In Minutes): 35 Discharge Plan Discharge Items Patient Disposition: Home - Self-Care Reason For Visit: FACIAL CELLULITIS Discharge Diagnosis: facial infection Condition on Discharge: Good Activity: Resume your previous activity Lifting: Gradually increase as tolerated Bathing: No limitations Exercise/Sports: Gradually increase as tolerated Driving/Machine Use: Resume 1 day after discharge Weightbearing: Full weightbearing Non-emergency contact: Surgeon Call non-emergency contact if: your symptoms worsen, your temperature is above 101.5, your wound has increased drainage and your wound pain has increased Follow-up/Referrals: Erick Green MD [Primary Care Provider] - (Date & Time 09/25/2022 10:00 AM Provider Erick Green MD [facility] ) Eric Cornejo DMD [Physician] - Diet: Regular Diet Texture: Easy to Chew Diet Comment: advance diet as tolerated Addtl Attending Provider Instructions: ADDITIONAL ACTIVITY RECOMMENDATIONS: * [place] teeth after every meal. It is very important to keep your mouth clean to prevent infection. * Starting tonight rinse with the Peridex as directed then 2 x a day * it is very important to keep well hydrated, this prevents fever and possible d ry socket pain SPECIAL CARE INSTRUCTIONS: *It is not uncommon that between day 2-4 that your swelling will be at its worst this is very normal, do not be alarmed. * Keep ice on the side of your face for the next 24 to 36 hours. This will help keep the swelling down. * After 36 hours, apply heat (hot water bottle or heating pad) for the next two days, as often as possible. * Tomorrow start rinsing your mouth with 1/2 teaspoon salt in 8 ounces warm water. This rinse should be used every 4-6 hours. * You may experience slight nausea. To prevent this, never take your medication on an empty stomach. If nauseated, take small sips of dalton jarrod until you feel better; then you may start on applesauce and toast. * Some swelling is common. It should gradually decrease within 4-5 days. * A certain amount of bleeding is to be expected. It is often possible to control mild oozing by placing folded gauze over the area and biting down for 30 minutes. If you are unable to control excessive bleeding, call Dr Cornejo at [phone] * You may experience some discomfort for a few days. If pain or swelling increases, Call Dr Cornejo * Return to the office for a follow up check up on: SaturdayOctober 01 at 1 pm * office address--[address] 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 Follow up with your Dr. Cornejo on Oct 01 as scheduled. Take your meds as prescribed. Pending Studies at Discharge: No Stand-Alone Forms: My [facility] Manpacks, Smoking Cessation Medications and DC Order Prescriptions: Continued amoxicillin-pot clavulanate 875-125 mg tablet 1 tab PO Q12H PRN (Reason: post op ) Qty: 20 0RF hydrocodone-acetaminophen 5-325 mg tablet 1 tab PO Q4H PRN (Reason: pain) Qty: 10 0RF ondansetron HCl 8 mg tablet 8 mg PO Q8H PRN (Reason: nausea and vomiting) Qty: 10 0RF diphenhydramine HCl [Benadryl Allergy] 25 mg Tablet 25 mg PO QAM ibuprofen 200 mg Tablet 800 mg PO Q6H PRN (Reason: Pain) Discharge Orders: Discharge Order (Routine); Ordered 09/19/22 Ordered By: Eric Cornejo Admission Data Admit Date/Time: 09/18/22 16:33 Attending Provider: Benita Mckenzie Admit Provider: Dean Salinas Primary Care Provider: Erick Green Other Providers: Dean Salinas ; Eric Cornejo
--- NOTE | 2022-09-28 13:55 | Operative Report ---
PG Post Operative Report Pre & Post Diagnosis Operation Date: 09/18/22 11:00 Pre-Op Diagnosis: FACIAL CELLULITIS Post-Op Diagnosis: FACIAL CELLULITIS I identified the patient and participated in the time-out.: Yes Procedure Operation Date: 09/18/22 11:00 Actual Procedures p Right Facial Incision and Drainage - Eric Cornejo DMD s Tooth Extraction(Right) - Eric Cornejo DMD Surgeon Eric Cornejo DMD Engine Wiper none Estimated Blood Loss 5 Findings Consistent with Post-Op Diagnosis infection lower right face and mouth Specimens none Drains none Anesthesia Type General Complications none Indications infection not responding to outpatient care Description of Procedure K12.2 CPT 09587 Incision and Drainage Submandibular, subperiosteal and Floor of the mouth D7210 Extraction # 30 and # 4 Actual Procedures p Incision and Drainage Submandibular, subperiosteal and Floor of the mouth Abscess; Removal of Tooth #30 and # 4 (Not Applicable) - Eric Cornejo DMD Once cleared for surgery general anesthesia was achieved, the eyes were protected by the anesthesia dept criteria. A time out was take for patient ID, antibiotics, equipment and position verification once all agreed the procedure began. Local anesthesia using Marcaine with a vasoconstrictor ( 1.8 ml per site) given into right inferior alveolar nerve A throat pack was placed after the oral cavity was irrigated with saline. Once a surgical level of anesthesia was obtained and the local anesthesia was given time for the blocks the surgery was started. I turned my attention to the infection which was located in the Submandibular, subperiosteal and Floor of the mouth Abscess The tongue was elevated and there was also swelling associated with tooth # 30 (this was the reason was admitted ) Incision and Drainage Using a 15 blade an incision was made medial to the alveolar ridge and lateral to the duct of the submandibular gland. Once the incision was made a lot of pus extruded from the site. A curved hemostat was carefully placed into the infected space along the medial side of the lower jaw to the inferior boarder. Some further drainage was now allowed to escape. I palpated the submandibular space and no further drainage was expressed. The area was irrigated with at least 100 ml of NS solution. I now turned my attention to remove the # 30 tooth. Lower #30 The full thick Muco-periosteal flap was made on the facial aspect from # 27-31. The flap was reflected to expose the the subperiosteal space the bone adjacent to #30 The rogue was used to remove bone, the tooth was removed with a 301 elevator, the mental nerve was intact, there was a large amount of granulation tissue on the apex and some more pus that was expressed. This was a failing necrotic root canal tooth. As seen on the CT scan there was perforation of the cortical plate resulting in the infection spread. Upper tooth # 4 This fractured tooth was was visualized, it was close to the sinus and removed with an 81 elevator. Bony margins were trimmed, smoothed and sutured closed with a 2-0 chromic x 2. There was no sinus involvement. I inspected the sites to insure all bleeding was controlled. I removed the throat pack and suctioned the throat. A gauze pressure dressings were placed. All instrument and sponge count was correct. the patient was allowed to awake from the anesthesia. Once full awake patient was taken to the recovery room with all vital sign stable. The patient tolerated the surgery very well. I will follow the patient in my office if needed, Rx and instructions will be given upon discharge by medicine. I attest to the content of the Intraoperative Record and any orders documented therein. Any exceptions are noted below.
== END 2022-09-19 12:08 | disposition home or self-care (01) | DRG 137 ==
LOC: ED 11:31 → 3W 11:31 → SUATTDRO 09-18 16:33
DX: R13.10 Dysphagia, unspecified; Z79.899 Other long term (current) drug therapy; L03.211 Cellulitis of face; Z88.8 Allergy status to other drugs, medicaments and biological substances; F17.210 Nicotine dependence, cigarettes, uncomplicated; K12.2 Cellulitis and abscess of mouth; K04.8 Radicular cyst; K30 Functional dyspepsia; J30.9 Allergic rhinitis, unspecified; Z20.822 Contact with and (suspected) exposure to COVID-19; Z91.018 Allergy to other foods; T39.395A Adverse effect of other nonsteroidal anti-inflammatory drugs [NSAID], initial encounter; K02.9 Dental caries, unspecified; K04.7 Periapical abscess without sinus